=== PATIENT | female | born 2000 | race Caucasian/White ===

== ENCOUNTER → 2020-01-28 17:33 | Outpatient (CLI) | payer OTHER, SELFPAY | PROVIDERS: PCP Family Medicine; Referring Provider Nurse Practitioner Family; Visit Provider Nurse Practitioner Family | DX: Z20.828 Contact with and (suspected) exposure to other viral communicable diseases (principal) | CPT/HCPCS: 87635; C9803; U0003 ==

== ENCOUNTER 2020-08-21 14:20 | Outpatient (RCR) | payer OTHER, SELFPAY ==
[2017-04-04 08:29] VITALS: BMI 33.8
== END 2020-10-07 23:59 ==
LOC: IMMUN 14:20
PROVIDERS: PCP Family Medicine; Referring Provider Family Medicine; Visit Provider Family Medicine
DX: Z23 Encounter for immunization (principal)
CPT/HCPCS: 0001A; 0002A; 91300